=== PATIENT | male | born 1975 | race Caucasian/White ===

== ENCOUNTER 2022-03-24 19:34 | Emergency (ER) | payer OTHER ==
[2022-03-24 19:52] VITALS: BMI 31.4
[2022-03-24 23:23] LABS: BASO % 0.4 % (0-2.0); EOS % 2.8 % (0-4.5); HEMOGLOBIN 14.1 GM/dL (11.7-16.9); LYMPH % 43.2 % (8-40); MCH 25.8 pg (25.7-33.7); MCHC 33.5 g/dl (32.0-35.9); MEAN PLT VOLUME 8.7 fl (7.5-11.1); MONO % 9.1 % (3.8-10.2); NEUT % 44.5 % (42.8-82.8); PLATELET COUNT 216 10^3/uL (134-434); RBC 5.46 M/mm3 (4.00-5.60)
[2022-03-24 23:51] VITALS: BP 129/81; PULSE 76; RESP 18; TEMP 98.1
[2022-03-24 23:52] LABS: BLOOD UREA NITROGEN 11.7 mg/dL (7-18); CALCIUM 9.2 mg/dL (8.5-10.1); MAGNESIUM 2.1 mg/dL (1.8-2.4)
[2022-03-24 23:57] LABS: BILIRUBIN,TOTAL 0.7 mg/dL (0.2-1); TOT PROT 7.2 g/dl (6.4-8.2)
== END 2022-03-25 01:00 | disposition home or self-care (01) ==
LOC: JER 19:34
DX: R00.2 Palpitations (principal)
CPT/HCPCS: 36415; 71046-TC-FY; 80053; 83735; 84443; 84484; 85025; 93005; 93010; 99285-25